=== PATIENT | female | born 1965 | race Caucasian/White ===

== ENCOUNTER 2021-08-29 15:19 | Inpatient (IN) | payer SELFPAY ==
[~2021-08-29] VITALS: Ht 172.7 cm; Wt 58.1 kg
[2021-08-29] MEDS ORDERED: LORAZEPAM 2MG/ML CPJ IM STA (15:41)
[2021-08-29] MEDS ORDERED: SODIUM CHLORIDE 0.9% 1,000 ML IV ONE (15:45)
[2021-08-29] MEDS ORDERED: OLANZAPINE 10 MG/VIAL IM ONE (15:45)
[2021-08-29 16:45] LABS: BASOPHILS % 0.4 % (0.0-2.0); HEMOGLOBIN. 13.3 g/dL (12.0-16.0); LYMPHOCYTES % 16.1 % (20.0-50.0); MEAN CORPUSCULAR HEMOGLOBIN 28.4 pg (28.0-32.0); MEAN CORPUSCULAR VOLUME 85.8 fL (81.0-99.0); MEAN PLATELET VOLUME 8.5 fl (7.4-10.4); NEUTROPHILS % 76.5 % (40.0-76.0); PLATELET 296 x1000/uL (130-400); RED BLOOD CELL COUNT 4.66 mill/uL (4.2-5.4); RED CELL DISTRIBUTION WIDTH 14.6 % (11.6-14.6)
[2021-08-29 16:47] LABS: CHLORIDE 108 mEq/L (98-107)
[2021-08-29 16:51] LABS: ETHANOL BLOOD < 10 mg/dL
[2021-08-29] MEDS ORDERED: ASPIRIN 325MG EC TABLET PO ONE (18:00)
[2021-08-29] MEDS ORDERED: ENOXAPARIN 80MG/0.8ML SYR SUBCUT ONE (18:15)
[2021-08-29] MEDS ORDERED: POTASSIUM CHLORIDE 20MEQ TABLET SR PO ONE (18:15)
[2021-08-29 23:29] LABS: CLARITY URINE CLEAR (CLEAR); COLOR URINE DARK YELLOW (YELLOW); KETONES URINE 1+ (NEGATIVE); LEUKOCYTE ESTERASE URINE TRACE (NEGATIVE); NITRITE URINE NEGATIVE (NEGATIVE); OCCULT BLOOD URINE NEGATIVE (NEGATIVE); PH URINE 5.5 (4.5-8.0); PROTEIN URINE 1+ (NEGATIVE); SPECIFIC GRAVITY URINE 1.034 (1.005-1.030)
[2021-08-29 23:41] LABS: *AMPHETAMINES SCREEN URINE PRESUMTIVE POSITIVE (NEGATIVE); *BARBITURATES SCREEN URINE NEGATIVE (NEGATIVE); *BENZODIAZEPINES SCREEN URINE NEGATIVE (NEGATIVE)
[2021-08-29 23:42] LABS: *COCAINE SCREEN URINE NEGATIVE (NEGATIVE); CANNABINOID URINE SCREEN NEGATIVE (NEGATIVE); METHADONE URINE SCREEN NEGATIVE (NEGATIVE); OPIATES URINE SCREEN NEGATIVE (NEGATIVE); PHENCYCLIDINE URINE SCREEN NEGATIVE (NEGATIVE)
[2021-08-30] VITALS (9 sets, daily range): BP systolic 109–153; BP diastolic 70–87
[2021-08-30] MEDS ORDERED: ONDANSETRON HCL 4MG/2ML INJ IV PRN (11:00)
[2021-08-30] MEDS ORDERED: DOCUSATE SODIUM 100MG CAPSULE PO PRN (11:00)
[2021-08-30] MEDS ORDERED: HYDROCODONE/ACETAMINOPHEN 5/325MG TABLET PO PRN (11:00)
[2021-08-30] MEDS ORDERED: ACETAMINOPHEN 325MG TABLET PO PRN (11:00)
[2021-08-30] MEDS ORDERED: IPRATROPIUM/ALBUTEROL 0.5-3(2.5)MG/3ML NEB HHN PRN (11:00)
[2021-08-30] MEDS ORDERED: CLONIDINE 0.1MG TABLET PO PRN (11:00)
[2021-08-30] MEDS ORDERED: MAGNESIUM/ALUMINUM HYDROXIDE/SIMETHICONE 30ML UDC PO PRN (11:00)
[2021-08-30] MEDS ORDERED: NALOXONE HCL 0.4MG/ML VIAL IV PRN (11:30)
[2021-08-30 12:42] LABS: CREATINE KINASE MB FRACTION 13.7 ng/mL (0.5-3.6)
[2021-08-30] MEDS: ENOXAPARIN 40MG/0.4ML SYR SUBCUT SCH (13:02)
[2021-08-30] MEDS: OMEPRAZOLE 20MG CAPSULE EXTENDED RELEASE PO SCH (13:02)
[2021-08-31] VITALS (12 sets, daily range): BP systolic 106–139; BP diastolic 56–76
[2021-08-31 06:38] LABS: CHLORIDE 109 mEq/L (98-107)
[2021-08-31 06:47] LABS: PHOSPHORUS 2.5 mg/dL (2.5-4.9)
[2021-08-31 06:48] LABS: LDL CHOLESTEROL 106 mg/dL (5-100)
[2021-08-31 06:49] LABS: T4 FREE 1.08 ng/dL (0.76-1.46)
[2021-08-31 06:50] LABS: HDL CHOLESTEROL 33 mg/dL (40-59)
[2021-08-31 06:54] LABS: BASOPHILS % 0.4 % (0.0-2.0); HEMATOCRIT. 36.2 % (36.0-48.0); HEMOGLOBIN. 12.1 g/dL (12.0-16.0); LYMPHOCYTES % 29.1 % (20.0-50.0); MEAN CORPUSCULAR HEMOGLOBIN 28.6 pg (28.0-32.0); MEAN CORPUSCULAR VOLUME 85.7 fL (81.0-99.0); MEAN PLATELET VOLUME 8.6 fl (7.4-10.4); NEUTROPHILS % 60.5 % (40.0-76.0); PLATELET 251 x1000/uL (130-400); RED BLOOD CELL COUNT 4.22 mill/uL (4.2-5.4); RED CELL DISTRIBUTION WIDTH 13.9 % (11.6-14.6)
[2021-08-31] MEDS: OMEPRAZOLE 20MG CAPSULE EXTENDED RELEASE PO SCH (08:40)
[2021-08-31] MEDS: ENOXAPARIN 40MG/0.4ML SYR SUBCUT SCH (13:26)
[2021-08-31] MEDS: SODIUM CHLORIDE 0.9% 1,000 ML IV SCH ×2 (17:55→20:48)
[2021-08-31 19:21] LABS: CREATINE KINASE 2113 IU/L (26-192)
[2021-08-31] MEDS: FAMOTIDINE 20MG TABLET PO SCH (20:48)
[2021-08-31] MEDS ORDERED: TRAZODONE HCL 50MG TABLET PO SCH (21:00)
[2021-09-01] VITALS: BP 109/62
[2021-09-01 01:55] VITALS: BP 119/68
[2021-09-01 04:00] VITALS: BP 114/50
[2021-09-01 05:35] VITALS: BP 116/68
[2021-09-01 06:57] LABS: CHLORIDE 113 mEq/L (98-107)
[2021-09-01 07:07] LABS: BASOPHILS % 0.4 % (0.0-2.0); EOSINOPHILS % 0.9 % (0.0-5.0); HEMATOCRIT. 36.2 % (36.0-48.0); HEMOGLOBIN. 11.9 g/dL (12.0-16.0); LYMPHOCYTES % 25.4 % (20.0-50.0); MEAN CORPUSCULAR HEMOGLOBIN 28.2 pg (28.0-32.0); MEAN CORPUSCULAR VOLUME 85.5 fL (81.0-99.0); MEAN PLATELET VOLUME 8.6 fl (7.4-10.4); MONOCYTES % 8.1 % (2.0-8.0); NEUTROPHILS % 65.2 % (40.0-76.0); PLATELET 254 x1000/uL (130-400); RED BLOOD CELL COUNT 4.24 mill/uL (4.2-5.4); RED CELL DISTRIBUTION WIDTH 14.1 % (11.6-14.6)
[2021-09-01 07:21] LABS: CREATINE KINASE 892 IU/L (26-192)
[2021-09-01 07:55] VITALS: BP 119/64
[2021-09-01] MEDS ORDERED: ARIPIPRAZOLE 5MG TABLET PO SCH (09:00)
[2021-09-01] MEDS ORDERED: ABIL5 PO (09:43)
[2021-09-01] MEDS: FAMOTIDINE 20MG TABLET PO SCH (09:44)
[2021-09-01 11:17] VITALS: BP 146/66
== END 2021-09-01 18:38 | disposition home or self-care (01) | DRG 52 ==
LOC: ER 15:19 → MICUSO 21:33 → EDBD 21:33 → EDBEDREQ 21:43 → EDBEDREQTM 21:43 → 3WST 08-30 07:18 → 5EST 08-30 07:38
PROVIDERS: ADMIT Internal Medicine; ATTEND Internal Medicine
DX: G92.9 Unspecified toxic encephalopathy (principal); M62.82 Rhabdomyolysis; F29 Unspecified psychosis not due to a substance or known physiological condition; R45.851 Suicidal ideations; F31.9 Bipolar disorder, unspecified; D72.829 Elevated white blood cell count, unspecified; Z20.822 Contact with and (suspected) exposure to COVID-19; E87.6 Hypokalemia; R74.01 Elevation of levels of liver transaminase levels; F15.10 Other stimulant abuse, uncomplicated; Z59.00 Homelessness unspecified
CPT/HCPCS: 36415; 71045; 76700; 80048; 80053; 80061; 80076; 80305; 80307; 80320; 80329; 81003; 82140; 82550; 82553; 83735; 84100; 84132; 84439; 84443; 84484; 85025; 87426; 93005; 93306; 93970; 97161; 97166; 99291; J1650; J7030; U0003; U0005; G0480